=== PATIENT | female | born 1965 | race Two or more races ===

== ENCOUNTER 2020-12-23 15:06 | Emergency (ER) | payer OTHER ==
[~2020-12-23] VITALS: Ht 162.6 cm; Wt 104.3 kg
[~2020-12-23 15:06] MED LIST: ATACAND HCT 11 UDTA1 PO
[2020-12-23] MEDS ORDERED: INDERAL XL80 MG (15:15)
[2020-12-25] MEDS ORDERED: CIPR PO (13:10)
[2020-12-25] MEDS ORDERED: [UNRECOGNIZED DRUG - OTHER] PO (13:11)
== END 2020-12-24 10:12 | disposition home or self-care (01) ==
LOC: ER 15:06
DX: K80.00 Calculus of gallbladder with acute cholecystitis without obstruction (principal); Z03.818 Encounter for observation for suspected exposure to other biological agents ruled out

== ENCOUNTER 2020-12-29 04:53 | Inpatient (IN) | payer OTHER ==
[~2020-12-29] VITALS: Ht 121.9 cm; Wt 5.0 kg
[~2020-12-29 04:53] MED LIST changes: +CIPR PO; +INDERAL XL80 MG; +[UNRECOGNIZED DRUG - OTHER] PO
[2020-12-29] MEDS ORDERED: FAMOTIDINE40 MG (11:00)
[2020-12-29] MEDS ORDERED: DICYCLOMINE HCL20 MG (11:00)
[2020-12-29] MEDS ORDERED: SUCRALFATE1 GM (11:00)
[2020-12-29] MEDS ORDERED: CIPROFLOXACIN500 MG (11:00)
[2020-12-29] MEDS ORDERED: PANTOPRAZOLE SO40 MG (11:00)
[2020-12-29] MEDS ORDERED: PROPRANOLOL HCL40 MG (11:01)
== END 2020-12-31 12:55 | disposition home or self-care (01) | DRG 419 ==
LOC: CIR.AMB 04:53 → O/R 10:56 → SURG 10:56 → CIR.AMB 11:15 → SURG 11:22
PROVIDERS: ADMIT Specialist; ATTEND Specialist
PROC: BF10YZZ Fluoroscopy of Bile Ducts using Other Contrast (ICD-10-PCS; 2020-12-29)
PROC: 0FT44ZZ Resection of Gallbladder, Percutaneous Endoscopic Approach (ICD-10-PCS; principal; 2020-12-29 11:15)
DX: K80.00 Calculus of gallbladder with acute cholecystitis without obstruction (principal); I10 Essential (primary) hypertension

== ENCOUNTER 2022-06-29 21:18 | Emergency (ER) | payer OTHER ==
[~2022-06-29] VITALS: Ht 162.6 cm; Wt 104.3 kg
[~2022-06-29 21:18] MED LIST changes: +CIPROFLOXACIN500 MG; +DICYCLOMINE HCL20 MG; +FAMOTIDINE40 MG; +PANTOPRAZOLE SO40 MG; +PROPRANOLOL HCL40 MG; +SUCRALFATE1 GM
[2022-06-29] MEDS ORDERED: ATACAND (22:10)
[2022-06-29] MEDS ORDERED: SIMVASTATIN (22:10)
[2022-06-30] MEDS ORDERED: SIMVASTATIN5 MG PO (23:53)
== END 2022-06-30 02:31 ==
LOC: ER 21:18
DX: I10 Essential (primary) hypertension (principal); Z20.822 Contact with and (suspected) exposure to COVID-19

== ENCOUNTER 2022-06-30 23:26 | Emergency (ER) | payer OTHER ==
[~2022-06-30] VITALS: Ht 162.6 cm; Wt 97.1 kg
[~2022-06-30 23:26] MED LIST changes: +ATACAND; +SIMVASTATIN
[2022-06-30] MEDS ORDERED: SIMVASTATIN5 MG PO (23:53)
[2022-07-01] MEDS ORDERED: ONDANSETRON ODT4 MG PO (05:41)
== END 2022-07-01 06:00 ==
LOC: ER 23:26
DX: I10 Essential (primary) hypertension (principal); R51.9 Headache, unspecified

== ENCOUNTER 2024-10-04 10:10 | Emergency (ER) | payer OTHER ==
[~2024-10-04] VITALS: Ht 162.6 cm; Wt 99.8 kg
[~2024-10-04 10:10] MED LIST changes: +ONDANSETRON ODT4 MG PO; +SIMVASTATIN5 MG PO
[2024-10-04] MEDS ORDERED: ATACAND HCT 161 EACH (10:31)
[2024-10-04] MEDS ORDERED: RINGERS SOLUTION,LACTATED 1,000 ML IV STA (10:54)
[2024-10-04 11:26] LABS: HEMATOCRIT 39.4 % (36.0-45.00); HEMOGLOBIN 12.8 g/dL (12.0-15.00); MEAN CELL VOLUME 84.2 fL (80.00-100.00); MEAN CORPUSCULAR HEMOGLOBIN 27.3 pg (27.00-32.0); MEAN CORPUSCULAR HGB CONC 32.4 g/dl (32.0-36.0); PLATELET COUNT 301 K/uL (150-450); RED BLOOD COUNT 4.68 M/uL (4.00-6.00); RED CELL DISTRIBUTION WIDTH 14.3 % (11.5-14.5)
[2024-10-04 11:36] LABS: URINE APPEARANCE Clear; URINE BILIRRUBIN Negative (NEGATIVE); URINE BLOOD Negative; URINE COLOR Yellow; URINE GLUCOSE Negative (NEGATIVE); URINE KETONE Negative (NEGATIVE); URINE LEUKOCYTE Negative; URINE NITRATE Negative; URINE PROTEIN Negative (NEGATIVE); URINE UROBILINOGEN 0.2 E.U./dl
[2024-10-04 11:40] LABS: URINE BACTERIA 30.1 uL (0.0-1933); URINE EPITHELIAL CELLS 2.9 uL (0.0-38.8); URINE RBC 2.1 uL (0.0-20.8); URINE WBC 3.3 uL (0.0-23.2)
[2024-10-04 11:44] LABS: URINE CAST 0.45 uL (0.0-1.40)
[2024-10-04 12:03] LABS: ALBUMIN 3.6 gm/dL (3.4-5.0); BILIRUBIN TOTAL 0.44 mg/dL (0.3-1.2); BILIRUBIN,CONJUGATED 0.15 mg/dL (0.0-0.2); BILIRUBIN,UNCONJUGATED 0.29 mg/dL (0.0-0.6); CALCIUM 9.1 mg/dL (8.5-10.1); CREATININE SERUM 0.92 mg/dL (0.55-1.02); GFR 62.92; POTASSIUM 3.53 mEq/L (3.5-5.1); TOTAL PROTEIN 7.7 gm/dL (6.4-8.2)
== END 2024-10-04 14:17 | disposition home or self-care (01) ==
LOC: ER 10:12
PROVIDERS: General Practice
DX: K52.89 Other specified noninfective gastroenteritis and colitis (principal); E86.0 Dehydration; I10 Essential (primary) hypertension

== ENCOUNTER 2024-11-13 20:39 | Emergency (ER) | payer OTHER ==
[~2024-11-13] VITALS: Ht 162.6 cm; Wt 98.4 kg
[~2024-11-13 20:39] MED LIST changes: +ATACAND HCT 161 EACH
[2024-11-13] MEDS ORDERED: PEPCID AC20 MG (20:48)
[2024-11-13 20:49] VITALS: BP 117/80; O2SAT 98
[2024-11-13] MEDS ORDERED: FAMOTIDINE/PF 20 MG in 0.9 % SODIUM CHLORIDE 8 ML IV PUSH STA (21:17)
[2024-11-13] MEDS ORDERED: 0.9 % SODIUM CHLORIDE 1,000 ML IV SCH (21:30)
[2024-11-13] MEDS ORDERED: ONDANSETRON HCL 2 MG/ML VIAL IV ONE (21:30)
[2024-11-13] MEDS ORDERED: DIPHENOXYLATE HCL/ATROPINE 1 UDTAB TABLET PO ONE (21:30)
[2024-11-13 21:59] LABS: HEMATOCRIT 39.1 % (36.0-45.00); HEMOGLOBIN 12.7 g/dL (12.0-15.00); MEAN CELL VOLUME 84.3 fL (80.00-100.00); MEAN CORPUSCULAR HEMOGLOBIN 27.3 pg (27.00-32.0); MEAN CORPUSCULAR HGB CONC 32.4 g/dl (32.0-36.0); PLATELET COUNT 297 K/uL (150-450); RED BLOOD COUNT 4.64 M/uL (4.00-6.00); RED CELL DISTRIBUTION WIDTH 13.8 % (11.5-14.5)
[2024-11-13 22:25] LABS: ALBUMIN 3.7 gm/dL (3.4-5.0); BILIRUBIN TOTAL 0.57 mg/dL (0.3-1.2); CALCIUM 9.1 mg/dL (8.5-10.1); CREATININE SERUM 0.88 mg/dL (0.55-1.02); GFR 66.23; GLOBULINA 3.6 G/DL (2.4-3.5); POTASSIUM 4.02 mEq/L (3.5-5.1); TOTAL PROTEIN 7.3 gm/dL (6.4-8.2)
[2024-11-14] MEDS ORDERED: LEVSIN/SL0.125 MG SL (02:21)
[2024-11-14] MEDS ORDERED: ZOFRAN8 MG PO (02:21)
== END 2024-11-14 02:28 ==
LOC: ER 20:41
PROVIDERS: General Practice
DX: E86.0 Dehydration (principal); R19.7 Diarrhea, unspecified; I10 Essential (primary) hypertension